=== PATIENT | female | born 1935 | race Caucasian/White ===

== ENCOUNTER 2023-07-20 18:12 | Outpatient (CLI) | payer MEDICARE | END 2023-07-20 18:13 | disposition home or self-care (01) | LOC: NAV RAD 18:12 | PROVIDERS: ATTEND Student in an Organized Health Care Education/Training Program | DX: M54.50 Low back pain, unspecified (principal); M47.816 Spondylosis without myelopathy or radiculopathy, lumbar region; J98.4 Other disorders of lung | CPT/HCPCS: 72072; 72100 ==